=== PATIENT | male | born 1990 | race Caucasian/White ===

== ENCOUNTER 2021-06-19 13:43 | Outpatient (REF) | payer OTHER, SELFPAY | END 2021-06-19 13:44 | disposition home or self-care (01) | LOC: HO.HMGCLDS 13:43 | PROVIDERS: Visit Provider Internal Medicine | DX: Z20.822 Contact with and (suspected) exposure to COVID-19 (principal) | CPT/HCPCS: C9803; U0003; U0005 ==

== ENCOUNTER 2021-07-13 14:37 | Outpatient (REF) | payer OTHER, SELFPAY | END 2021-07-13 14:38 | disposition home or self-care (01) | LOC: HO.HMGCLDS 14:37 | PROVIDERS: Visit Provider Internal Medicine | DX: Z20.822 Contact with and (suspected) exposure to COVID-19 (principal) | CPT/HCPCS: C9803; U0003; U0005 ==